=== PATIENT | male | born 1960 ===

== ENCOUNTER 2016-12-31 05:41 | Inpatient (IN) | payer OTHER ==
[~2016-12-31] VITALS: Ht 175.3 cm; Wt 68.9 kg
[2016-12-31] VITALS (16 sets, daily range): BP systolic 114–133; BP diastolic 69–86
[~2016-12-31 05:41] MED LIST: ATORVASTATIN CA20 MG ORAL
[2016-12-31] MEDS ORDERED: Vancomycin 1gm/D5W 275ml IVPB ONE ×2 (06:00)
[2016-12-31] MEDS ORDERED: Pantoprazole Inj IVP ONE (06:00)
[2016-12-31] MEDS ORDERED: CHANTIX1 MG PO (06:26)
[2016-12-31] MEDS ORDERED: LR 1000ml 1,000 ML IVLG SCH (06:46)
--- NOTE | 2016-12-31 06:46 | Anethesia Preoperative Eval ---
Anesthesia Pre-op PMH/ROS General Date of Evaluation: Dec 31, 2016 Time of Evaluation: 07:41 Anesthesiologist: Bree ASA Score: ASA 2 Mallampati Score Class I : Soft palate, uvula, fauces, pillars visible Class II: Soft palate, uvula, fauces visible Class III: Soft palate, base of uvula visible Class IV: Only hard plate visible Mallampati Classification: Class II Surgeon: Matteo Diagnosis: Neck Pain Surgical Procedure: ACDF C4-5, C5-6, C6-7, Iliac Graft Anesthesia History: none Family History: no anesthesia problems Allergies: Coded Allergies: No Known Allergies (Unverified , 12/30/16) Medications: see eMAR Past Medical History Cardiovascular: Reports: other - HL PSxH Narrative: L IHR Anesthesia Pre-op Phys. Exam Physician Exam Last Vital Signs Date Time Temp Pulse Resp B/P (MAP) Pulse Ox O2 Delivery O2 Flow Rate FiO2 12/31/16 06:19 98.0 76 18 132/77 96 Room Air Constitutional: NAD Neurologic: CN 2-12 intact Cardiovascular: RRR Respiratory: CTA Gastrointestinal: S/NT/ND Airway Exam Mallampati Score: Class II MO: full ROM: limited Teeth: intact Anesthesia Pre-op A/P Risk Assessment & Plan Assessment: ASA 2 Plan: GA, BIS, Glidescope Status Change Before Surgery: No Pre-Antibiotics Drug: Vancomycin 1 Gram, Gentamicin 80 MG IV Given Within 1 Hr of Incision: Yes Time Given: 07:46 Jose Antonio Giron MD Dec 31, 2016 06:46
--- NOTE | 2016-12-31 06:49 | Immediate Post-Op Evaluation ---
Immediate Post-Op Evalulation Immediate Post-Op Evalulation Procedure: ACDF C4-5, C5-6, C6-7, Iliac Graft Date of Evaluation: Dec 31, 2016 Time of Evaluation: 12:44 IV Fluids: 1000 LR Blood Products: 0 Estimated Blood Loss: 75 Urinary Output: 450 Blood Pressure Systolic: 125 Blood Pressure Diastolic: 76 Pulse Rate: 106 Respiratory Rate: 16 O2 Sat by Pulse Oximetry: 100 Temperature (Fahrenheit): 98.3 Pain Score (1-10): 3 Nausea: No Vomiting: No Complications 0 Patient Status: awake, reacts, patent, none Hydration Status: adequate Drug: Vancomycin 1 Gram, Gentamicin 80 MG IV Given Within 1 Hr of Incision: Yes Time Given: 07:46 Jose Antonio Giron MD Dec 31, 2016 06:49
[2016-12-31] MEDS ORDERED: Thrombin 5000 units TOPIC ONE (06:53)
[2016-12-31] MEDS ORDERED: NeoSporin Gu Irrig 1ml Amp IRRIG ONE (06:54)
[2016-12-31] MEDS ORDERED: Gelfoam Absorbable 1gm powder pkt TOPIC ONE (06:54)
[2016-12-31] MEDS ORDERED: Vancomycin 1gm inj IVPB ONE (06:54)
[2016-12-31] MEDS ORDERED: Bupivacaine w/Epi 0.5% 30ml Vial INJ ONE (06:54)
[2016-12-31] MEDS ORDERED: Bacitracin 50000 Units Vial ONE (06:54)
[2016-12-31] MEDS ORDERED: Thrombin 5000 units spray kit TOPIC ONE (06:54)
[2016-12-31] MEDS ORDERED: Norco 5mg/325mg tab ORAL PRN (07:00)
[2016-12-31] MEDS ORDERED: Midazolam 2mg/2ml Inj IVP PRN (07:00)
[2016-12-31] MEDS ORDERED: Atropine Inj 1mg/10ml Syr IV PRN (07:00)
[2016-12-31] MEDS ORDERED: Metoclopramide 10mg/2ml Inj IVP PRN (07:00)
[2016-12-31] MEDS ORDERED: Ketorolac 60mg Inj IV PRN (07:00)
[2016-12-31] MEDS ORDERED: Meperidine 25mg/0.5ml Inj (FOR RIGORS ONLY) IV PRN (07:00)
[2016-12-31] MEDS ORDERED: LORazepam Inj 2mg/ml 1ml IV PRN (07:00)
[2016-12-31] MEDS ORDERED: oxyCODONE HCL/Acetaminophen 5/325mg ORAL PRN (07:00)
[2016-12-31] MEDS ORDERED: Norco 7.5mg/325mg tab ORAL PRN ×3 (07:00→12:45)
[2016-12-31] MEDS ORDERED: Hydromorphone 0.5mg/0.5ml inj IVP PRN (07:00)
[2016-12-31] MEDS ORDERED: DiphenhydrAMINE 50mg/ml Inj IVP PRN (07:00)
[2016-12-31] MEDS ORDERED: fentaNYL 100 mcg/2 mL IV PRN (07:00)
[2016-12-31] MEDS ORDERED: Ketorolac 30mg Inj IV PRN (07:00)
[2016-12-31] MEDS ORDERED: Sodium Chloride 10ml vial INJ ONE (07:45)
[2016-12-31] MEDS ORDERED: LR 1000ml ONE (07:45)
[2016-12-31] MEDS ORDERED: Propofol 1,000mg/ 100ml btl IV ONE (07:45)
[2016-12-31] MEDS ORDERED: Zemuron 50mg/5ml Inj IV ONE (07:45)
[2016-12-31] MEDS ORDERED: Dexamethasone 4mg/ml vial ONE (07:45)
[2016-12-31] MEDS ORDERED: fentaNYL 100 mcg/2 mL IV ONE (07:45)
[2016-12-31] MEDS ORDERED: Lidocaine 1% Plain 30 ml INJ ONE (07:45)
[2016-12-31] MEDS ORDERED: NS Irrig 1000ml ONE (07:45)
[2016-12-31] MEDS ORDERED: Sterile Water Irrig 1000ml IRRIG ONE (07:45)
[2016-12-31] MEDS ORDERED: Lidocaine 1% MPF 10mg/ml 5ml ONE (07:45)
--- NOTE | 2016-12-31 07:48 | Pre-Procedure Note/Attestation ---
Pre-Procedure Note/Attestation Complete Prior to Procedure Planned Procedure: bilateral Procedure Narrative: Anterior cervical discectomy and fusion at C4-5, C5-6 and C6-7 level with interbody graft, arthrodesis, allograft, autograft and iliac crest bone marrow aspiration. Attestation I attest that I discussed the nature of the procedure; its benefits; risks and complications; and alternatives (and the risks and benefits of such alternatives ), prior to the procedure, with the patient (or the patient's legal healthcare representative). I attest that, if there was a reasonable possibility of needing a blood transfusion, the patient (or the patient's legal healthcare representative) was given the [place] Department of Health Services standardized written summary, pursuant to the [place] Blood Safety Act ([place] Health and Safety Code # 1645, as amended). I attest that I re-evaluated the patient just prior to the surgery and that there has been no change in the patient's H&P, except as documented below: JEAN PIERRE FREITAS Dec 31, 2016 07:48
[2016-12-31] MEDS ORDERED: Acetaminophen (Non formulary) 100 ML IV ONE (08:00)
--- NOTE | 2016-12-31 12:43 | Brief Operative Note ---
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 R sided anterior cervical retropharyngeal approach. modifier 22 will be used for the degree of difficulty 2. Complete discectomy at C4-5, C5-6 and C6-7 levels. 3. [place] of local bone from vertebra for grafting. 4. Bilateral neuroforamintomies at C4-5, C5-6 and C6-7 levels. 5. Insertion biomechanical device, PEEK cage 7 mm x 17 x 14 mm at C4-5 and C5-6 levels and 8mm x 17mm x 14 mm at C6-7 level. 6. Arthrodesis at C4-5, C5-6 and C6-7 levels with 11 mm plates 7. harvest of bone marrow from the left iliac crest and processing for implantation 8. Intra-operative neuromonitoring including MEPs, SSEPs and EMG and DEPs. 9. Intra-op microdissection with operative microscope. 10. Supervision, use and interpretation of inter-operative fluoroscopy. 11. Plastic surgical closure of a 8 cm cervical wound. 12. Modifier 22 will be used for the difficulty of exposure and decompression. Post-op Diagnosis: same as pre-op Findings: consistent w/pre-op dx studies Surgeon: Kaylin Felipe MD Director Housekeeping: Eulalio Alexandre MD Anesthesiologist: Dr. Giron Anesthesia: general Specimen: yes - disc Complications: none Condition: stable Fluids: 1000 cc crystalloids Estimated Blood Loss: volume - less than 50 cc Drains: none Implant(s) used?: Yes - LDR KRYSTINA-c PEEK interbody and plates. KAYLIN Tran Dec 31, 2016 12:43
[2016-12-31] MEDS ORDERED: Milk of Magnesia 30ml Ud ORAL PRN (12:45)
[2016-12-31] MEDS ORDERED: HYDROmorphone 1mg/ml Carpuject IVP PRN (12:45)
--- NOTE | 2016-12-31 13:27 | Diagnostic Imaging Report ---
Indication: PAIN Technique: Intraoperative images Comparison: None Findings: Intraoperative images document a surgical needle placed at the anterior aspect of the C4-5 disc. Subsequent images demonstrate fusion hardware and disc spacers bridging C4-5, C5-6, and C6-7. Impression: Intraoperative imaging, as described
[2016-12-31] MEDS: NS w/KCl 20mEq 1,000 ML IV SCH (15:36)
--- NOTE | 2016-12-31 17:12 | General Progress Note ---
Progress Note Progress Note Neurosurgery Post-op S/ Comfortable no arm pain O/ Vs. Last 24 Hour Vital Signs Date Time Temp Pulse Resp B/P (MAP) Pulse Ox O2 Delivery O2 Flow Rate FiO2 12/31/16 15:52 98.3 89 20 122/69 99 Room Air 12/31/16 15:10 98.1 85 20 120/77 98 Room Air 12/31/16 13:50 97.0 85 13 117/80 99 Nasal Cannula 3.0 12/31/16 13:40 85 13 117/80 99 Nasal Cannula 3.0 12/31/16 13:30 85 16 123/82 98 Nasal Cannula 3.0 12/31/16 13:20 90 14 114/79 100 Nasal Cannula 3.0 12/31/16 13:10 96 12 119/80 100 Nasal Cannula 3.0 12/31/16 13:00 98 15 122/81 100 Nasal Cannula 3.0 12/31/16 12:50 100 13 121/74 100 Simple Mask 6.0 12/31/16 12:40 100 12 126/86 100 Simple Mask 6.0 12/31/16 12:35 98 12 126/69 100 Simple Mask 6.0 12/31/16 12:35 106 16 100 12/31/16 12:33 97.3 104 13 125/76 99 Simple Mask 6.0 12/31/16 06:19 98.0 76 18 132/77 96 Room Air Alert and orinted x 3 Moveas all extremities well. Normal sensation normal motor strength. dressings are dry doing well admit. pt's family updated JEAN PIERRE FREITAS Dec 31, 2016 17:12
[2016-12-31] MEDS: Pericolace tab ORAL SCH (17:24)
[2016-12-31] MEDS ORDERED: Docusate 100mg cap ORAL SCH (18:00)
[2016-12-31] MEDS: Atorvastatin 20mg tab ORAL SCH (20:57)
[2016-12-31] MEDS: Vancomycin 1 GM in D5W 275 ML IVPB SCH (20:57)
--- NOTE | 2016-12-31 22:24 | General Progress Note ---
Assessment/Plan Status Narrative S/P SPINE FUSION JUN LYNCH OPT OT DVT PROPHYALXIS PAINCONTROL WILL MOONITOR Subjective Date patient seen: Dec 31, 2016 Time patient seen: 22:23 Constitutional: Reports: no symptoms HEENT: Reports: no symptoms Cardiovascular: Reports: no symptoms Respiratory: Reports: no symptoms Allergies: Coded Allergies: No Known Allergies (Unverified , 12/30/16) Objective Last 24 Hour Vital Signs Date Time Temp Pulse Resp B/P (MAP) Pulse Ox O2 Delivery O2 Flow Rate FiO2 12/31/16 20:00 97.9 108 18 133/86 96 Room Air 12/31/16 18:58 98.6 103 20 127/76 95 Room Air 12/31/16 17:55 97.4 90 20 124/73 97 Room Air 12/31/16 15:52 98.3 89 20 122/69 99 Room Air 12/31/16 15:10 98.1 85 20 120/77 98 Room Air 12/31/16 13:50 97.0 85 13 117/80 99 Nasal Cannula 3.0 12/31/16 13:40 85 13 117/80 99 Nasal Cannula 3.0 12/31/16 13:30 85 16 123/82 98 Nasal Cannula 3.0 12/31/16 13:20 90 14 114/79 100 Nasal Cannula 3.0 12/31/16 13:10 96 12 119/80 100 Nasal Cannula 3.0 12/31/16 13:00 98 15 122/81 100 Nasal Cannula 3.0 12/31/16 12:50 100 13 121/74 100 Simple Mask 6.0 12/31/16 12:40 100 12 126/86 100 Simple Mask 6.0 12/31/16 12:35 98 12 126/69 100 Simple Mask 6.0 12/31/16 12:35 106 16 100 12/31/16 12:33 97.3 104 13 125/76 99 Simple Mask 6.0 12/31/16 06:19 98.0 76 18 132/77 96 Room Air Intake and Output 12/31/16 01/01/17 19:00 07:00 Intake Total 2100 ml 100 ml Output Total 500 ml Balance 1600 ml 100 ml Intake Oral 350 ml IV Total 1750 ml 100 ml Output Urine Total 450 ml Estimated Blood Loss 50 ml # Voids 2 Height (Feet): 5 Height (Inches): 9.00 Weight (Pounds): 152 EENT: PERRL/EOMI Neck: other - HAS SODFTCERVICLA COLLAR Cardiovascular: normal rate, regular rhythm, no JVD Respiratory/Chest: lungs clear Abdomen: non tender, soft KETAN GANDHI Dec 31, 2016 22:24
[2017-01-01] VITALS: BP 127/79
--- NOTE | 2017-01-01 00:15 | Operative Note - Dictated ---
DATE OF OPERATION: 12/31/2016 PREOPERATIVE DIAGNOSES: 1. Status post traumatic injury to cervical spine and lumbar spine in August 2015. 2. Intractable neck pain with cervical myeloradiculopathy. 3. Evidence of cord compression at C4-C5, C5-C6, and C6-C7 with extruded disk at C4-C5, severe central canal stenosis, and myelopathic changes in the spinal cord. 4. 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 5. Lack of improvement from conservative measures, chiropractic treatment, and epidural injections for the lumbar spine. POSTOPERATIVE DIAGNOSES: 1. Status post traumatic injury to cervical spine and lumbar spine in August 2015. 2. Intractable neck pain with cervical myeloradiculopathy. 3. Evidence of cord compression at C4-C5, C5-C6, and C6-C7 with extruded disk at C4-C5, severe central canal stenosis, and myelopathic changes in the spinal cord. 4. 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 5. Lack of improvement from conservative measures, chiropractic treatment, and epidural injections for the lumbar spine. PROCEDURES: 1. Right-sided approach, retropharyngeal to the cervical spine. Modifier 22 will be used to denote the degree of difficulty. 2. Complete total diskectomies at C4-C5, C5-C6, and C6-C7 levels. 3. Bilateral neural foraminotomies at C4-C5, C5-C6, and C6-C7 levels with use of intraoperative microscope and magnification. 4. Insertion of biomechanical device, PEEK cage, LDR system, 7 mm x 17 x 14 mm at C4-C5 and C5-C6, and 8 mm x 17 x 14 mm at C6-C7 levels under fluoroscopic guidance. 5. [place] of local bone from vertebrae for grafting. 6. Anterior arthrodesis at C4-C5, C5-C6, and C6-C7 levels using 11 mm plate. 7. [place] of iliac crest bone marrow from the left side and processing of the specimen for implantation. 8. Intraoperative microdissection using operative microscope. 9. Intraoperative neuromonitoring including motor evoked potentials, somatosensory evoked potentials, free-run EMG, and dermatomal evoked potentials. 10. Supervision use and interpretation of intraoperative fluoroscopy for localization of cervical spine and placement of cervical hardware. 11. Plastic surgical closure of an 8 cm cervical wound. 12. Modifier 22 will be used to denote degree of difficulty for the entirety of the case including exposure and decompression. SURGEON: Kaylin Felipe M.D. CODING CLERK SURGEON: Eulalio Alexandre M.D. ANESTHESIOLOGIST: Jose Antonio Giron M.D. Anesthesia Type: General endotracheal video-assisted intubation anesthesia. ESTIMATED BLOOD LOSS: Less than 50 mL. IV FLUIDS: 1 L. URINE OUTPUT: 700 mL. SPECIMEN: Disk. Indication: The patient is a pleasant 56-year-old gentleman status post injury to cervical and lumbar spine in August 2015. He has developed neck pain with cervical myeloradiculopathy and lower back pain with radiculopathy. He has undergone conservative measures, medical therapy, interventional pain injections to his lumbar spine, continues to have significant neck pain and cervical myeloradiculopathy. Imaging studies were obtained including MRIs and CT scan of the cervical spine, which showed severe compression of the cervical spinal cord with a large extruded disk at the C4-C5 level with severe distortion and compromise of the spinal cord at this level. He also has rozytlyv-[id number] central canal stenosis at C5-C6 and C6-C7 levels. In preparation for surgery, he has stopped smoking. He is presently on Chantix. Risk of the operation including but not limited to risk of infection, bleeding, nerve damage, paralysis, coma, , spinal fluid leakage, possibility of pseudoarthrosis requiring revision surgery, high likelihood of adjacent segment disease requiring additional treatments in the future including physical therapy, medications, injections, and ultimately adjacent segment fusion and/or disk arthroplasty were all discussed with the patient. He understood the risks, benefits, and alternatives and signed a consent to proceed. Details Of Procedure: The patient was taken to the operating room. He was identified. He underwent an uneventful video-assisted endotracheal intubation. He received preincisional IV antibiotics, Decadron, and magnesium sulfate. He was placed supine with a shoulder roll and neck support in place. Head was placed in Holter traction one pound. Pre-incisional somatosensory and motor evoked potentials were obtained for baseline purposes. Neck and left iliac crest regions were then pre-prepped. Fluoroscopic images were used to localize the cervical spine using radiopaque markers attached to the skin itself. AP and lateral images were obtained. Neck and left iliac crest regions were then prepped and draped in sterile fashion. The intraoperative time-out took place and the circulating nurse called the time-out. The attention was given to the left iliac crest region first. The periosteum was infiltrated using Marcaine and epinephrine. An incision was made over the left iliac crest and using a Jamshidi needle, 30 mL of bone marrow was aspirated and then handed off to a bicycle technician for processing. Approximately 3 mL of bone marrow aspirate concentrate was then brought to the field and mixed with demineralized bone matrix, [place]. Attention was given to the right side of the neck. Incision site was infiltrated using Marcaine and epinephrine. Microscope was brought to the field. The entire approach was done under microscopic magnification including decompression and fusion. Using a #15 blade, an incision was made in one of the natural lines of the cervical spine. Dissection was carried down to the level of the platysma. Platysma was incised horizontally and subplatysmal plane were developed cephalad and caudad. A bloodless plane was then created along the medial border of the sternocleidomastoid down to the prevertebral fascia. Carotid artery and sheath were identified and displaced laterally and esophagus was displaced medially. The prevertebral fascia was lifted and opened using Metzenbaum scissors. A vein was ligated, which was crossing the superior end of the incision, which appeared to be the tributary of the facial nerve. Vein was closed using a silk tie and then incised. Next, the intraoperative fluoroscopic images were obtained to verify correct levels by placing a spinal needle within the inner vertebral disk levels. The annulotomy was performed using #15 blade initially at C5-C6 and then subsequent levels, C5-C6 and C4-C5 levels were at first identified and then anulus was incised. This was first ligated using 4-0 silk tie and then incised using Metzenbaum scissors. This provided excellent exposure of the C4-C5 level. Attention was given to the C6-C7 level. Annulotomy was performed using a #15 blade. The cartilaginous ends were cleared using angled curettes. Bilateral foraminotomies were performed using Kerrison punches. Intervertebral distraction was also performed to allow for decompression of the posterior aspect of the vertebral body. A high-speed drill was used to perform a partial corpectomy of the C6 and C7 posterior vertebral portions. This provided decompression of the anterior portion of the spinal cord. The posterior longitudinal ligament was partially opened. There was severe compromise of the foraminal region and edosjdne-jo-dyqakd compromise at the central canal due to the disk herniation. All of these areas were cleared using Microsect curettes, Kerrison punches, and micro instruments. The endplates were then gently decorticated for grafting purposes. C5-C6 level was approached next. Annulotomy was performed. The disk was removed using angled curettes. The endplate was gently decorticated. There was evidence of severe central canal stenosis with herniation of disk material into the canal. Using micro instruments, the disk herniation was removed and from the posterior longitudinal ligament and delivered with pituitary rongeurs. Wide bilateral foraminotomy was performed using Kerrison punches to free up exiting C6 roots. There was severe foraminal compression otherwise. Attention was given to the C4-C5 level. The annulotomy was performed using a #15 blade. The disk was removed and the cartilage was also removed using angled curettes. Using intervertebral distractor device, the partial corpectomies of C4 and C5 levels were performed. The extruded disk was then removed using micro instruments and using 2-0 Microsect instruments. Posterior longitudinal ligament was partially opened to ensure that the central canal was decompressed fully. Bilateral foraminotomies were also performed. Intervertebral cages were inserted at C6-C7, which were 8 mm x 17 x 14 mm and at C4-C5 and C5-C6 level, which were 7 mm high, 17 mm width, and 14 mm depth. Fluoroscopic images were obtained throughout the process to ensure proper placement of the instrumentation. Motor evoked potentials were also performed frequently throughout the case to ensure integrity of the spinal cord. Using 11 mm plates, the anterior arthrodesis was then completed at C4-C5, C5-C6, and C6-C7 levels. Excellent height reconstruction was obtained. AP and lateral fluoroscopic images at the end of the case were performed, which showed proper hardware placement and reconstruction of the cervical lordosis. Wound was irrigated with copious antibiotic irrigation. Hemostasis was obtained using bipolar and FloSeal throughout the case. The longus colli muscles were from the anterior portion of the spinal canal and [place] retractors were used for the retraction throughout the case. Modifier 22 will be used for the degree of difficulty in approach and also for the degree of difficulty in decompression of this severely stenotic central canal at multiple levels. Complications none. The incision sites were closed in plastic surgical manner at the cervical region using 3-0 Vicryl stitches and 4-0 Monocryl for the subcuticular layer. Steri-Strips and Dermabond were used for the cervical spine. Steri-Strips were used for the left iliac crest incision. Both incisions were dressed. The patient was placed in a cervical collar. COMPLICATIONS: None. Kaylin Felipe M.D. DR: LUIS JOB#: [id number] CC: MARYSOL
[2017-01-01] MEDS: NS w/KCl 20mEq 1,000 ML IV SCH ×2 (01:30→11:51)
[2017-01-01 04:00] VITALS: BP 112/75
--- NOTE | 2017-01-01 06:31 | 48 Hour Post Anesthesia Eval ---
Post Anesthesia Evaluation Procedure: ACDF C4-5, C5-6, C6-7, Iliac Graft Date of Evaluation: Jan 01, 2017 Time of Evaluation: 06:30 Blood Pressure Systolic: 112 0: 75 Pulse Rate: 87 Respiratory Rate: 18 Temperature (Fahrenheit): 97.8 O2 Sat by Pulse Oximetry: 96 Airway: patent Nausea: No Vomiting: No Pain Intensity: 4 Hydration Status: adequate Cardiopulmonary Status: Stable Mental Status/LOC: patient returned to baseline Follow-up Care/Observations: 0 Post-Anesthesia Complications: 0 Follow-up care needed: N/A Jose Antonio Giron MD Jan 01, 2017 06:31
[2017-01-01] MEDS: Pericolace tab ORAL SCH ×2 (07:42→18:00)
[2017-01-01] MEDS: Vancomycin 1 GM in D5W 275 ML IVPB SCH (07:42)
[2017-01-01 08:00] VITALS: BP 118/75
[2017-01-01 08:06] LABS: ANION GAP 10 (5-15); CALCIUM 9.1 mg/dL (8.6-10.2); CARBON DIOXIDE 29 mEQ/L (20-30); CHLORIDE 100 mEQ/L (98-107); CREATININE 0.9 mg/dL (0.7-1.2); GLOMERULAR FILTRATION RATE > 60 mL/min (>60); HEMOLYSIS 4; MAGNESIUM 2.2 mg/dL (1.7-2.5); POTASSIUM 4.1 mEQ/L (3.4-4.9); SODIUM 139 mEQ/L (135-145)
[2017-01-01] MEDS: Hydromorphone 0.5mg/0.5ml inj IVP PRN ×4 (08:06→19:39)
--- NOTE | 2017-01-01 08:14 | General Progress Note ---
Assessment/Plan Status Narrative S/P ACDF PERIOPERATIVE ANTIBIOTI CPROPHJYALXIS GIVEN SOME DRY COUGH HISTORYFO HEAVY SMOKING PLAN FOLLWO [place] START ALBUTEROL AND ATROVENT AND MONITOR DOING OK Subjective Date patient seen: Jan 01, 2017 Time patient seen: 08:13 Constitutional: Reports: no symptoms HEENT: Reports: no symptoms Cardiovascular: Reports: no symptoms Respiratory: Reports: other - some dry cough no feverncohisll Allergies: Coded Allergies: No Known Allergies (Unverified , 12/30/16) Objective Last 24 Hour Vital Signs Date Time Temp Pulse Resp B/P (MAP) Pulse Ox O2 Delivery O2 Flow Rate FiO2 01/01/17 06:31 87 18 96 01/01/17 04:00 97.8 87 18 112/75 96 Room Air 01/01/17 00:00 99.2 102 18 127/79 96 Room Air 12/31/16 20:00 97.9 108 18 133/86 96 Room Air 12/31/16 18:58 98.6 103 20 127/76 95 Room Air 12/31/16 17:55 97.4 90 20 124/73 97 Room Air 12/31/16 15:52 98.3 89 20 122/69 99 Room Air 12/31/16 15:10 98.1 85 20 120/77 98 Room Air 12/31/16 13:50 97.0 85 13 117/80 99 Nasal Cannula 3.0 12/31/16 13:40 85 13 117/80 99 Nasal Cannula 3.0 12/31/16 13:30 85 16 123/82 98 Nasal Cannula 3.0 12/31/16 13:20 90 14 114/79 100 Nasal Cannula 3.0 12/31/16 13:10 96 12 119/80 100 Nasal Cannula 3.0 12/31/16 13:00 98 15 122/81 100 Nasal Cannula 3.0 12/31/16 12:50 100 13 121/74 100 Simple Mask 6.0 12/31/16 12:40 100 12 126/86 100 Simple Mask 6.0 12/31/16 12:35 98 12 126/69 100 Simple Mask 6.0 12/31/16 12:35 106 16 100 12/31/16 12:33 97.3 104 13 125/76 99 Simple Mask 6.0 Laboratory Tests 01/01/17 05:30: Sodium Level 139, Potassium Level 4.1, Chloride Level 100, Carbon Dioxide Level 29, Anion Gap 10, Blood Urea Nitrogen 14, Creatinine 0.9, Estimat Glomerular Filtration Rate > 60, Glucose Level 126H, Calcium Level 9.1, Magnesium Level 2.2 Height (Feet): 5 Height (Inches): 9.00 Weight (Pounds): 152 General Appearance: WD/WN Cardiovascular: normal rate, regular rhythm Respiratory/Chest: lungs clear Abdomen: soft Extremities: other - no edema KETAN GANDHI Jan 01, 2017 08:14
[2017-01-01] MEDS: Albuterol/Ipratropium 3ml neb HHN SCH ×3 (09:32→19:08)
[2017-01-01 12:00] VITALS: BP 109/72
--- NOTE | 2017-01-01 12:27 | General Progress Note ---
Progress Note Progress Note Neurosurgery POD #1 S/ Ambulated. Sore throat improving. No arm pain. Ambulated with the PT. Incisional pain on Dilaudid. O/ Vs: Last 24 Hour Vital Signs Date Time Temp Pulse Resp B/P (MAP) Pulse Ox O2 Delivery O2 Flow Rate FiO2 01/01/17 12:00 98.1 91 19 109/72 95 Room Air 01/01/17 09:35 82 20 98 Nasal Cannula 3.0 32 01/01/17 09:34 88 16 97 Nasal Cannula 3.0 32 01/01/17 09:34 32 01/01/17 08:00 98.6 89 19 118/75 95 Room Air 01/01/17 06:31 87 18 96 01/01/17 04:00 97.8 87 18 112/75 96 Room Air 01/01/17 00:00 99.2 102 18 127/79 96 Room Air 12/31/16 20:00 97.9 108 18 133/86 96 Room Air 12/31/16 18:58 98.6 103 20 127/76 95 Room Air 12/31/16 17:55 97.4 90 20 124/73 97 Room Air 12/31/16 15:52 98.3 89 20 122/69 99 Room Air 12/31/16 15:10 98.1 85 20 120/77 98 Room Air 12/31/16 13:50 97.0 85 13 117/80 99 Nasal Cannula 3.0 12/31/16 13:40 85 13 117/80 99 Nasal Cannula 3.0 12/31/16 13:30 85 16 123/82 98 Nasal Cannula 3.0 12/31/16 13:20 90 14 114/79 100 Nasal Cannula 3.0 12/31/16 13:10 96 12 119/80 100 Nasal Cannula 3.0 12/31/16 13:00 98 15 122/81 100 Nasal Cannula 3.0 12/31/16 12:50 100 13 121/74 100 Simple Mask 6.0 12/31/16 12:40 100 12 126/86 100 Simple Mask 6.0 12/31/16 12:35 98 12 126/69 100 Simple Mask 6.0 12/31/16 12:35 106 16 100 12/31/16 12:33 97.3 104 13 125/76 99 Simple Mask 6.0 Alert and orientedx3 moves all extremities well incisions dry increased sensation in the hands Bilaterally labs: Laboratory Tests Test 01/01/17 05:30 Sodium Level 139 mEQ/L (135-145) Potassium Level 4.1 mEQ/L (3.4-4.9) Chloride Level 100 mEQ/L (98-107) Carbon Dioxide Level 29 mEQ/L (20-30) Anion Gap 10 (5-15) Blood Urea Nitrogen 14 mg/dL (7-23) Creatinine 0.9 mg/dL (0.7-1.2) Estimat Glomerular Filtration Rate > 60 mL/min (>60) Glucose Level 126 mg/dL (74-106) H Calcium Level 9.1 mg/dL (8.6-10.2) Magnesium Level 2.2 mg/dL (1.7-2.5) doing well PT pain management D/c planning \ JEAN PIERRE FREITAS Jan 01, 2017 12:27
[2017-01-01] MEDS ORDERED: Ipratropium 0.02% Inh Soln 2.5ml UD HHN SCH (13:00)
[2017-01-01 16:00] VITALS: BP 116/71
[2017-01-01 20:00] VITALS: BP 114/78
[2017-01-01] MEDS: Atorvastatin 20mg tab ORAL SCH (20:54)
[2017-01-02] VITALS: BP 102/73
[2017-01-02] MEDS: Hydromorphone 0.5mg/0.5ml inj IVP PRN ×3 (00:30→07:07)
[2017-01-02] MEDS: Albuterol/Ipratropium 3ml neb HHN SCH ×2 (00:50→13:15)
[2017-01-02 04:00] VITALS: BP 108/71
[2017-01-02 08:00] VITALS: BP 112/74
[2017-01-02] MEDS: Pericolace tab ORAL SCH (09:00)
[2017-01-02] MEDS ORDERED: NORCO 10-325 T1 EACH ORAL (10:49)
[2017-01-02] MEDS ORDERED: CYCLOBENZAPRINE10 MG ORAL (10:50)
[2017-01-02 12:00] VITALS: BP 126/75
--- NOTE | 2017-01-04 13:58 | Discharge Summary ---
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 Right-sided approach, retropharyngeal to the cervical spine. Modifier 22 will be used to denote the degree of difficulty. 2. Complete total diskectomies at C4-C5, C5-C6, and C6-C7 levels. 3. Bilateral neural foraminotomies at C4-C5, C5-C6, and C6-C7 levels with use of intraoperative microscope and magnification. 4. Insertion of biomechanical device, PEEK cage, LDR system, 7 mm x 17 x 14 mm at C4-C5 and C5-C6, and 8 mm x 17 x 14 mm at C6-C7 levels under fluoroscopic guidance. 5. [place] of local bone from vertebrae for grafting. 6. Anterior arthrodesis at C4-C5, C5-C6, and C6-C7 levels using 11 mm plate. 7. [place] of iliac crest bone marrow from the left side and processing of the specimen for implantation. 8. Intraoperative microdissection using operative microscope. 9. Intraoperative neuromonitoring including motor evoked potentials, somatosensory evoked potentials, free-run EMG, and dermatomal evoked potentials. 10. Supervision use and interpretation of intraoperative fluoroscopy for localization of cervical spine and placement of cervical hardware. 11. Plastic surgical closure of an 8 cm cervical wound. 12. Modifier 22 will be used to denote degree of difficulty for the entirety of the case including exposure and decompression. Hospital Course s/p surgery course of recovery uneventful neurovascular intact pain management Cepacol prn for sore throat liquid diet and advance as tolerated OOB with PT, able to ambulate dressing C/D/I IS while in the bed, encourage to use DVT prophylaxis voided freely bowel regimen cleared for dc fup as outpt with neurosurgeon as advised FINAL DIAGNOSES 1. Status post traumatic injury to cervical spine and lumbar spine (August 2015) 2. Intractable neck pain with cervical myeloradiculopathy. 3. Evidence of cord compression at C4-C5, C5-C6, and C6-C7 with extruded disk at C4-C5, 4. Severe central canal stenosis, and myelopathic changes in the spinal cord. 5. 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 6. s/p Anterior cervical discectomy and fusion at C4-5, C5-6 and C6-7 level with interbody graft, arthrodesis, allograft, autograft and iliac crest bone marrow aspiration. Extruded disc with severe central canal stenosis at C4-5, spinal cord compressin and central canal stenosis at C4-5, C5-6, and C6-7 levels Intractable neck pain and cervical myelopathy lack of improvement form conservative care and interventional pain injections Discharge Medications Continued Medications: Cyclobenzaprine Hcl* (Flexeril*) 10 Mg Tablet 10 MG ORAL THREE TIMES A DAY PRN for prn, #60 TAB Hydrocodone Bit/Acetaminophen 10-325* ([place] 10-325*) 1 Each Tablet 1 TAB ORAL Q6H PRN for For Pain, #45 TAB 0 Refills PRN PAIN Discharge Condition Upon Discharge: stable Discharge Disposition Patient was discharged to Home (01) Discharge Diagnoses: Discharge Instructions Discharge Instructions Special Instructions I have been assigned to complete a D/C Summary on this account. I was not involved in the patient management Hoa Wood NP ([place]) Jan 04, 2017 13:58
== END 2017-01-02 15:39 | disposition home or self-care (01) | DRG 473 ==
LOC: SDSOVERFLO 05:41 → 3E 14:32
PROC: 0RT30ZZ Resection of Cervical Vertebral Disc, Open Approach (ICD-10-PCS; principal; 2016-12-31 07:30)
PROC: 0RG2070 Fusion of 2 or more Cervical Vertebral Joints with Autologous Tissue Substitute, Anterior Approach, Anterior Column, Open Approach (ICD-10-PCS; principal; 2016-12-31 07:30)
PROC: 07DR3ZZ Extraction of Iliac Bone Marrow, Percutaneous Approach (ICD-10-PCS; principal; 2016-12-31 07:30)
PROC: 0RG20A0 Fusion of 2 or more Cervical Vertebral Joints with Interbody Fusion Device, Anterior Approach, Anterior Column, Open Approach (ICD-10-PCS; principal; 2016-12-31 07:30)
DX: M50.023 Cervical disc disorder at C6-C7 level with myelopathy (principal); M48.02 Spinal stenosis, cervical region; Z72.0 Tobacco use
CPT/HCPCS: 36415; 72040; 76001; 80048; 83735; 86850; 86900; 86901; 87081; 94003; 94150; 94640; C9399; J2405; J7620